=== PATIENT | female | born 1955 | race Caucasian/White ===

== ENCOUNTER 2017-10-15 08:13 | Outpatient (CLI) | payer OTHER | END 2017-10-15 08:19 | disposition home or self-care (01) | LOC: SONOGRAMA 08:13 | DX: E04.1 Nontoxic single thyroid nodule (principal) ==

== ENCOUNTER 2022-06-29 10:31 | Outpatient (CLI) | payer OTHER | END 2022-06-29 10:44 | disposition home or self-care (01) | LOC: SONOGRAMA 10:31 | PROVIDERS: ATTEND Surgery | DX: D24.1 Benign neoplasm of right breast (principal); N60.11 Diffuse cystic mastopathy of right breast; N60.12 Diffuse cystic mastopathy of left breast ==